=== PATIENT | male | born 1945 | race Caucasian/White ===

== ENCOUNTER 2017-11-06 17:20 | Observation (INO) | payer MEDICARE, SELFPAY ==
[~2017-11-06] VITALS: Ht 185.4 cm; Wt 74.4 kg
[2017-11-06] MEDS ORDERED: LIDOCAINE-MPF 1%, 5ML ONE (17:35)
[2017-11-06] MEDS ORDERED: CEFAZOLIN 1,000 MG IM ONE (18:00)
[2017-11-06] MEDS ORDERED: DIPH,PERTUSS(ACELL),TET VAC/PF 0.5 ML IM-VACC ONE ×2 (18:00→18:17)
[2017-11-06] MEDS ORDERED: CEFAZOLIN 1,000 MG ONE (18:17)
[2017-11-06] MEDS ORDERED: CEFAZOLIN PMX 1GM/50ML 50 ML ONE (18:50)
[2017-11-06 18:57] VITALS: BP 117/74
[2017-11-06] MEDS ORDERED: CEFAZOLIN PMX 1GM/50ML 50 ML IV ONE (19:00)
[2017-11-06] MEDS ORDERED: MIDAZOLAM 1 MG/ML, 2ML ONE (19:31)
[2017-11-06] MEDS ORDERED: FENTANYL PF 250 MCG/5ML ONE (19:31)
[2017-11-06] MEDS ORDERED: PROPOFOL 10 MG/ML, 20ML ONE (19:32)
[2017-11-06] MEDS ORDERED: FENTANYL PF 100 MCG/2ML ONE (20:57)
[2017-11-06] MEDS ORDERED: OXYcodone 5 MG/5 ML ORAL.SOL UDC ONE (20:57)
[2017-11-06] MEDS ORDERED: BUPIVACAINE/PF 0.5% ONE (21:06)
[2017-11-06] MEDS ORDERED: BUPIVACAINE/PF 0.5% INFIL ONE (21:08)
[2017-11-06] MEDS ORDERED: ACETAMINOPHEN 650 MG/20.3 ML UDC ONE (21:38)
[2017-11-06] MEDS ORDERED: FENTANYL PF 100 MCG/2ML IV PRN (22:00)
[2017-11-06] MEDS ORDERED: PROMETHAZINE 25 MG/ML, 1ML IM PRN (22:00)
[2017-11-06] MEDS ORDERED: ONDANSETRON ODT 8 MG PO PRN (22:00)
[2017-11-06] MEDS ORDERED: MEPERIDINE/PF 25MG/0.5ML IVPush PRN (22:00)
[2017-11-06] MEDS ORDERED: HYDROmorphone 1 MG/ML, 1ML IV PRN (22:00)
[2017-11-06] MEDS ORDERED: LABETALOL 5MG/ML, 20ML IV PRN (22:00)
[2017-11-06] MEDS ORDERED: ACETAMINOPHEN 325 MG TABLET PO PRN ×2 (22:00)
[2017-11-06] MEDS ORDERED: hydrALAzine 20 MG/ML, 1ML IV PRN (22:00)
[2017-11-06] MEDS ORDERED: OXYcodone 5 MG/5 ML ORAL.SOL UDC PO PRN (22:00)
[2017-11-06] MEDS ORDERED: ONDANSETRON 2MG/ML, 2ML IVPush PRN (22:00)
[2017-11-06] MEDS ORDERED: morphine SULFATE 10 MG/ML, 1ML IVPush PRN (22:00)
[2017-11-06] MEDS ORDERED: MORPHINE SULFATE 4 MG/ML, 1ML IVPush PRN (22:00)
[2017-11-06] MEDS ORDERED: HYDROcodone/APAP 5/325 TABLET PO PRN (22:00)
[2017-11-06] MEDS ORDERED: MORPHINE MC SCH (22:30)
[2017-11-06] MEDS ORDERED: HYDR-3240 PO (23:19)
[2017-11-06] MEDS ORDERED: AMOX1TAB64 PO (23:20)
[2017-11-06] MEDS ORDERED: DOCU-131 PO (23:21)
== END 2017-11-06 23:30 | disposition home or self-care (01) ==
LOC: ED 18:47 → EDIP 18:55 → 4NOR 22:23
PROVIDERS: ADMIT Orthopaedic Surgery; ATTEND Orthopaedic Surgery
DX: S62.631B Displaced fracture of distal phalanx of left index finger, initial encounter for open fracture (principal); S62.621B Displaced fracture of middle phalanx of left index finger, initial encounter for open fracture; S61.211A Laceration without foreign body of left index finger without damage to nail, initial encounter; Z23 Encounter for immunization; W45.8XXA Other foreign body or object entering through skin, initial encounter; Y93.89 Activity, other specified; Y92.89 Other specified places as the place of occurrence of the external cause; Y99.8 Other external cause status
CPT/HCPCS: 26735; 26765; 73120; 73140; 76000; 90471; 90715; 96365; 99285; G0378; J0690; J2250; J2704; J3010; J3490